=== PATIENT | male | born 1985 | race African-American/Black ===

== ENCOUNTER 2017-11-12 07:32 | Emergency (ER) | payer MEDICAID ==
[~2017-11-12] VITALS: Ht 175.3 cm; Wt 75.0 kg
[2017-11-12] MEDS ORDERED: KETOROLAC 30MG/ML VIAL IV STA (08:54)
[2017-11-12 09:56] LABS: EOSINOPHILS % 1.2 % (0.0-5.0); HEMATOCRIT. 43.4 % (42.0-52.0); HEMOGLOBIN. 14.5 g/dL (14.0-18.0); LYMPHOCYTES % 18.5 % (20.0-50.0); MEAN CORPUSCULAR HEMOGLOBIN 29.8 pg (28.0-32.0); MEAN CORPUSCULAR VOLUME 89.2 fL (80.0-94.0); MEAN PLATELET VOLUME 8.2 fl (7.4-10.4); MONOCYTES % 6.3 % (2.0-8.0); PLATELET 262 x1000/uL (130-400); RED BLOOD CELL COUNT 4.87 mill/uL (4.7-6.1); RED CELL DISTRIBUTION WIDTH 13.8 % (11.6-14.6)
[2017-11-12 10:01] LABS: CHLORIDE 106 mEq/L (98-107)
[2017-11-12 11:52] VITALS: BP 136/90
== END 2017-11-12 11:52 | disposition home or self-care (01) ==
LOC: ER 07:40
DX: N20.0 Calculus of kidney (principal)
CPT/HCPCS: 36415; 74176; 80053; 83690; 85025; 96374; 99285; J1885; Z7610

== ENCOUNTER 2018-05-26 21:57 | Emergency (ER) | payer MEDICAID ==
[~2018-05-26] VITALS: Ht 170.2 cm; Wt 73.0 kg
[2018-05-26 22:02] VITALS: BP 175/113
== END 2018-05-27 | disposition left against medical advice (07) ==
LOC: ER 22:11
DX: Z53.21 Procedure and treatment not carried out due to patient leaving prior to being seen by health care provider (principal)

== ENCOUNTER 2022-08-31 14:13 | Emergency (ER) | payer MEDICAID ==
[~2022-08-31] VITALS: Ht 175.3 cm; Wt 82.0 kg
[2022-08-31] MEDS ORDERED: LEVETIRACETAM 1000MG PREMIX 100 ML IV ONE (16:00)
[2022-08-31 16:38] LABS: CHLORIDE 107 mEq/L (98-107)
[2022-08-31 16:39] LABS: BASOPHILS % 0.4 % (0.0-2.0); EOSINOPHILS % 0.2 % (0.0-5.0); HEMATOCRIT. 42.4 % (42.0-52.0); LYMPHOCYTES % 12.6 % (20.0-50.0); MEAN CORPUSCULAR HEMOGLOBIN 28.9 pg (28.0-32.0); MEAN CORPUSCULAR VOLUME 87.6 fL (80.0-94.0); MEAN PLATELET VOLUME 7.9 fl (7.4-10.4); MONOCYTES % 4.3 % (2.0-8.0); NEUTROPHILS % 82.5 % (40.0-76.0); PLATELET 330 x1000/uL (130-400); RED BLOOD CELL COUNT 4.84 mill/uL (4.7-6.1); RED CELL DISTRIBUTION WIDTH 14.6 % (11.6-14.6)
[2022-08-31 16:47] LABS: ETHANOL BLOOD < 10 mg/dL; PHOSPHORUS 3.1 mg/dL (2.5-4.9)
[2022-08-31 17:56] LABS: CLARITY URINE CLEAR (CLEAR); COLOR URINE YELLOW (YELLOW); KETONES URINE TRACE (NEGATIVE); LEUKOCYTE ESTERASE URINE NEGATIVE (NEGATIVE); NITRITE URINE NEGATIVE (NEGATIVE); OCCULT BLOOD URINE NEGATIVE (NEGATIVE); PH URINE 6.5 (4.5-8.0); PROTEIN URINE NEGATIVE (NEGATIVE); SPECIFIC GRAVITY URINE 1.018 (1.005-1.030)
[2022-08-31] MEDS ORDERED: IBUPROFEN 400MG TABLET PO ONE (18:00)
[2022-08-31 18:26] LABS: *AMPHETAMINES SCREEN URINE NEGATIVE (NEGATIVE); *BARBITURATES SCREEN URINE NEGATIVE (NEGATIVE); *BENZODIAZEPINES SCREEN URINE NEGATIVE (NEGATIVE); *COCAINE SCREEN URINE NEGATIVE (NEGATIVE); CANNABINOID URINE SCREEN PRESUMTIVE POSITIVE (NEGATIVE); METHADONE URINE SCREEN NEGATIVE (NEGATIVE); OPIATES URINE SCREEN NEGATIVE (NEGATIVE); PHENCYCLIDINE URINE SCREEN NEGATIVE (NEGATIVE)
[2022-08-31] MEDS ORDERED: KEPP500 MT (18:58)
[2022-08-31 19:05] VITALS: BP 128/87
== END 2022-08-31 19:43 | disposition home or self-care (01) ==
LOC: ER 14:13
DX: R56.9 Unspecified convulsions (principal)
CPT/HCPCS: 36415; 70450; 71045; 73080; 80053; 80305; 80320; 81003; 83735; 84100; 85025; 93005; 96365; 99285; J1953; G0480